=== PATIENT | female | born 1955 | race Caucasian/White ===

== ENCOUNTER 2022-07-09 15:29 | Emergency (ER) | payer MEDICARE, OTHER ==
[~2022-07-09] VITALS: Ht 171.4 cm; Wt 108.9 kg
[2022-07-09] MEDS ORDERED: GABAPENTIN300 MG PO (16:03)
[2022-07-09] MEDS ORDERED: HYDROXYZINE HCL25 MG PO (16:03)
== END 2022-07-09 16:16 | disposition home or self-care (01) ==
LOC: ER 15:39
DX: I87.8 Other specified disorders of veins (principal); F41.9 Anxiety disorder, unspecified; I10 Essential (primary) hypertension
CPT/HCPCS: 99283

== ENCOUNTER 2022-08-01 12:32 | Emergency (ER) | payer MEDICARE, MEDICAID ==
[~2022-08-01] VITALS: Ht 171.4 cm; Wt 108.9 kg
[~2022-08-01 12:32] MED LIST: GABAPENTIN300 MG PO; HYDROXYZINE HCL25 MG PO
[2022-08-01 14:12] LABS: BASOPHILS # (AUTO) 0.1 (0.0-0.1); BASOPHILS % 1.1 % (0.0-1.0); EOSINOPHILS # (AUTO) 0.5 (0.0-0.4); EOSINOPHILS % 4.3 % (0.0-6.0); HEMATOCRIT 50.9 % (34.2-44.1); HEMOGLOBIN 16.7 g/dL (12.0-16.0); LYMPHOCYTES # (AUTO) 2.6 (1.0-3.2); LYMPHOCYTES % 24.1 % (18.0-39.1); MEAN CORPUSCULAR HEMOGLOBIN 31.3 pg (28-32); MEAN CORPUSCULAR HGB CONC 32.8 g/dL (31-35); MEAN CORPUSCULAR VOLUME 95.3 fL (81-99); MONOCYTES # (AUTO) 0.9 (0.2-0.8); MONOCYTES % 8.3 % (4.4-11.3); NEUTROPHILS # (AUTO) 6.8 (2.1-6.9); NEUTROPHILS % 61.9 % (38.7-80.0); PLATELET COUNT 320 x10e3/uL (140-360); RED BLOOD COUNT 5.34 x10e6/uL (3.6-5.1); RED CELL DISTRIBUTION WIDTH 11.9 % (11.7-14.4)
[2022-08-01] MEDS ORDERED: IBUPROFEN 600 MG TAB PO ONE (14:19)
[2022-08-01 14:30] LABS: ALBUMIN 4.7 g/dL (3.5-5.0); ALBUMIN/GLOBULIN RATIO 1.4 (0.8-2.0); ANION GAP 17.7 mmol/L (8-16); CALCIUM 9.9 mg/dL (8.4-10.2); CREATININE, SERUM 1.1 mg/dL (0.57-1.11); POTASSIUM 3.7 mmol/L (3.5-5.1)
[2022-08-01] MEDS ORDERED: CEPHALEXIN500 MG PO (15:18)
[2022-08-01] MEDS ORDERED: KEFLEX125 MG/5 M PO (15:18)
[2022-08-01 15:36] VITALS: BP 148/81
== END 2022-08-01 15:38 | disposition home or self-care (01) ==
LOC: ER 12:41
DX: L01.00 Impetigo, unspecified (principal); R05.9 Cough, unspecified; I10 Essential (primary) hypertension
CPT/HCPCS: 36415; 80053; 85025; 99283